=== PATIENT | male | born 1955 | race Hispanic/Latino ===

== ENCOUNTER 2022-09-14 16:11 | Emergency (ER) | payer SELFPAY ==
--- OUTSIDE RECORDS SUMMARY | 2022-09-14 16:14 | XMS REPORT | Continuity of Care Document ---
:1955 Author Organization [facility] t Address [address] [place] [address] [address]. [address] [place] [address] Care Team Providers Name Role Phone Lab, Adc Fam Pob I Attending Clinician Unavailable Elaine Waddell Attending Clinician ELAINE MARTINEZ Attending Clinician Unavailable Rina Peralta Attending Clinician David Rico MD Attending Clinician Clau Naidu MD Attending Clinician CLAU NAIDU Attending Clinician Unavailable NIECY BOYD Attending Clinician Unavailable Payers Payer Name Policy Type Policy Number Effective Date Expiration Date S ource Problems This patient has no known problems. Allergies, Adverse Reactions, Alerts Allergy Allergy Status Severity Reaction(s) Onset Inactive Treating Comm ents Source Name Type Date Date Clinician NO KNOWN Drug Active Univers [facility]ERGIE Class [facility] Social History Social Habit Start Date Stop Date Quantity Comments Source Exposure to Not sure [facility] SARS-CoV-2 (event) Medica l Branch Sex Assigned At [birth year] [facility] 00:00:00 00:00:00 [facility] Smoking Status Start Date Stop Date Source Unknown if ever smoked [facility] Medications This patient has no known medications. Procedures This patient has no known procedures. Encounters Start End Encounter Admission Attending Care Care Encounter Source Date/Time Date/Time Type Type Clinicians Facility Department ID 2021-04-16 2021-04-16 Laboratory Lab, [facility] Fam Pob I [facility] [id number] Univers 11:25:51 11:45:51 Only Elaine Martinez [facility] [id number] [facility] [id number] Roc as Professio [phone] Ne [address] One 2021-04-16 2021-04-16 Outpatient R JUAN [facility] [id number] Univers 11:00:00 11:00:00 ELAINE campos [facility] 2021-04-13 2021-04-13 [facility] [id number] Univers 00:00:00 00:00:00 [facility] [id number] [facility] [id number] Roc as Professio [phone] Ne dic[address] One 2021-04-13 2021-04-13 NIECY Diaz [id number] Univers 00:00:00 00:00:00 (Out) David NAPOLES [id number] i [facility] [id number] Roc as [phone] [address] 2021-04-12 2021-04-12 Laboratory Lab, Adc Fam Pob I [facility] [id number] Univers 17:29:54 17:49:54 Only Clau Naidu [facility] [id number] [facility] [place] [id number] Roc as Professio [phone] Ne dic[address] One 2021-04-12 2021-04-12 Outpatient R KERI [facility] [id number] Univers 17:20:00 17:20:00 CLAU campos [facility] 2020-12-20 2020-12-20 Outpatient R OLIVER [facility] [id number] Univers 09:20:00 09:50:25 NIECY [facility] Results This patient has no known results.
[2022-09-14 17:44] LABS: Absolute Lymphocytes (CBC) 1.7 K/uL (0.7-4.9); Hematocrit 21.5 % (39.6-49.0); Lymphocytes % 23.4 % (15.3-44.8); MCV 67.3 fL (80-100); MPV 8.5 fL (7.6-11.3)
[2022-09-14 17:45] LABS: Protime INR 1.21
[2022-09-14 17:59] LABS: Albumin 3.4 g/dL (3.4-5.0); Bilirubin Total 0.3 mg/dL (0.2-1.0); Potassium 3.7 mmol/L (3.5-5.1); Protein, Total 7.8 g/dL (6.4-8.2)
[2022-09-14 18:51] LABS: Platelet Estimate ADEQ; White Blood Cell Scan OK (OK)
[2022-09-14 18:52] LABS: Anisocytosis 1+; Blood Morphology Comment NOTED (NOT SEEN); Hypochromasia 1+; Polychromasia SLIGHT
[2022-09-14] MEDS ORDERED: ALBUTEROL 2.5 MG/3 ML NEB SOL ONE (19:07)
[2022-09-14] MEDS ORDERED: IPRATROPIUM BROM 0.5MG/2.5ML ONE (19:08)
[2022-09-14] MEDS ORDERED: NA CHLORIDE 0.9% 100 ML IV ONE ×2 (20:33→23:57)
[2022-09-14] MEDS ORDERED: LEVALBUTEROL 1.25 MG/3 ML NEB ONE (23:30)
[2022-09-14] MEDS ORDERED: METHYLPREDNISOLONE 125 MG INJ ONE (23:30)
[2022-09-15 02:11] LABS: Hematocrit 27.9 % (39.6-49.0); MCV 71.7 fL (80-100); MPV 8.6 fL (7.6-11.3); RBC Red Blood Cell Count 3.89 M/uL (4.33-5.43)
--- NOTE | 2022-09-15 02:21 | EDPHYS ---
Physician Documentation [facility] Name: Rosalio Kaiser Age: 67 yrs Sex: Male : 1955 Arrival Date: 09/14/2022 Time: 16:13 Bed 20 Private MD: ED Physician Damon Cazares HPI: 09/14 17:07 This 67 yrs old Male presents to ER via Ambulatory with complaints of Abnormal sp3 Lab Results. 17:07 87-year-old male with history of hypertension and asthma presents to the ED with chief sp3 complaint generalized weakness, dyspnea on exertion, and hemoglobin of 6.0 which was obtained at an outpatient urgent care yesterday. Patient is from [place] and here visiting his daughter who is a local business head of cytogenetics. In January 2022, he had a ground-level mechanical fall where he sustained a minor pelvis fracture and on that evaluation he was found to be anemic at that time as well where he received IV iron. Mild dark stools off and on during that time. Upon landing here in [facility], he denies having any dark stools or bloody emesis but has had dyspnea on exertion and generalized weakness. Therefore the went to the urgent care yesterday where they obtained the low hemoglobin. With a come to the ED so they are here today seeking possible blood transfusion and further direction. Patient returns to [place] in 4 days on review of systems, he denies headache, neck pain, chest pain, back pain, nausea, vomiting, diarrhea flank pain, current dark stools, hematuria, rash, extremity pain, syncope (full). He did say he had occasional abdominal pain but none at rest during history portion.. Historical: - Allergies: 16:35 No Known Allergies; kb3 - PMHx: 16:35 Hypertensive disorder; Asthma; kb3 - Immunization history:: Adult Immunizations up to date, Client reports receiving the 2nd dose of the Covid vaccine, Last tetanus immunization: up to date. - Social history:: Smoking status: Patient denies any tobacco usage or history of. ROS: 17:09 Eyes: Negative for injury, pain, redness, and discharge, ENT: Negative for injury, sp3 pain, and discharge, Neck: Negative for injury, pain, and swelling, Cardiovascular: Negative for chest pain, palpitations, and edema, Back: Negative for injury and pain, MS/Extremity: Negative for injury and deformity, Skin: Negative for injury, rash, and discoloration, Neuro: Negative for headache, weakness, numbness, tingling, and seizure, Psych: Negative for depression, anxiety, suicide ideation, homicidal ideation, and hallucinations, Allergy/Immunology: Negative for hives, rash, and allergies, Endocrine: Negative for neck swelling, polydipsia, polyuria, polyphagia, and marked weight changes. 17:09 All other systems are negative. Exam: 17:09 Constitutional: This is a well developed, well nourished patient who is awake, alert, sp3 and in no acute distress. Head/Face: Normocephalic, atraumatic. Eyes: Pupils equal round and reactive to light, extra-ocular motions intact. Lids and lashes normal. Conjunctiva and sclera are non-icteric and not injected. Cornea within normal limits. Periorbital areas with no swelling, redness, or edema. ENT: Nares patent. No nasal discharge, no septal abnormalities noted. External auditory canals are clear. Oropharynx with no redness, swelling, or masses, exudates, or evidence of obstruction, uvula midline. Mucous membranes moist. Neck: Trachea midline, no thyromegaly or masses palpated, and no cervical lymphadenopathy. Supple, full range of motion without nuchal rigidity, or vertebral point tenderness. No Meningismus. Chest/axilla: Normal chest wall appearance and motion. Nontender with no deformity. No lesions are appreciated. Cardiovascular: Regular rate and rhythm with a normal S1 and S2. No gallops, murmurs, or rubs. Normal PMI, no JVD. No pulse deficits. Respiratory: Lungs have equal breath sounds bilaterally, clear to auscultation and percussion. No rales, rhonchi or wheezes noted. No increased work of breathing, no retractions or nasal flaring. Back: No spinal tenderness. No costovertebral tenderness. Full range of motion. Skin: Warm, dry with normal turgor. Normal color with no rashes, no lesions, and no evidence of cellulitis. 17:09 Abdomen/GI: She has mild right upper quadrant pain to palpation without peritoneal signs including rebound or guarding.. Vital Signs: 16:27 BP 137 / 73; Pulse 60; Resp 20; Temp 98.8; Pulse Ox 96% ; Weight 95.25 kg; Height 5 ft. kb3 8 in. (172.72 cm); Pain 4/10; 18:26 BP 126 / 66; Pulse 55; Resp 18; Pulse Ox 95% on R/A; db 22:40 BP 126 / 76; Pulse 58; Resp 20 S; Pulse Ox 95% on R/A; bb 09/15 01:22 BP 136 / 65; Pulse 69; Resp 29 S; Pulse Ox 93% on 2 lpm NC; bb 01:30 BP 143 / 75; Pulse 77; Resp 22 S; Pulse Ox 93% on 2 lpm NC; bb 02:21 BP 136 / 68; Pulse 74; Resp 28 S; Temp 98.4(O); Pulse Ox 92% on R/A; bb 09/14 16:27 Body Mass Index 31.93 (95.25 kg, 172.72 cm) kb3 MDM: 09/14 16:48 Patient medically screened. sp3 17:10 Data reviewed: vital signs, nurses notes. ED course: 67-year-old male with generalized sp3 weakness and anemia at . outpatient facility yesterday. Patient also has mild right upper quadrant pain. Differential diagnosis includes peptic ulcer disease, gastritis, other GI bleeding, bone marrow suppression, iron deficiency anemia, other blood loss. And then highly suspicious for sepsis, shock, ACS, vascular compromise including aortic disease, or any other critical findings at this time. Reviewed lab work and obtain CT scan of the abdomen and pelvis. Likely transfuse 2 units PRBCs if indicated with follow-up to GI back in [place] after patient returns. I do not believe there is acute or brisk blood loss at this time. He will be signed out to night physician Dr. Cazares for ultimate disposition, and family is aware of this. . 23:22 ED course: . kdr 23:26 ED course: Patient has now completed 1 unit of blood. He appears to be stable. He has kdr developed some mild wheezing and congestion on the right side of his chest. He does not appear to be particularly dyspneic at this time. Will prophylactically treat with Xopenex and Solu-Medrol. ED course: Patient has 1 unit of blood remaining to be infused at this time. 09/14 16:41 Order name: CBC with Diff; Complete Time: 00:06 sp3 09/14 16:41 Order name: CMP; Complete Time: 18:03 sp3 09/14 16:41 Order name: Lipase; Complete Time: 18:03 sp3 09/14 16:41 Order name: Type And Screen sp3 09/14 16:41 Order name: PT-INR; Complete Time: 18:03 sp3 09/14 17:49 Order name: CBC Smear Scan; Complete Time: 00:06 EDDC 09/14 16:41 Order name: IV Saline Lock; Complete Time: 17:37 sp3 09/14 18:08 Order name: Bb Add On eb 09/14 18:23 Order name: Packed RBC Leukored [facility] 09/14 18:42 Order name: ABO/RH no charge; Complete Time: 00:06 EDDC 09/15 01:52 Order name: CBC w/o diff kdr 09/14 16:41 Order name: Labs collected and sent; Complete Time: 17:37 sp3 09/14 16:41 Order name: NPO; Complete Time: 17:37 sp3 Administered Medications: 23:46 Drug: SOLU-Medrol (methylPrednisoLONE) 125 mg Route: IVP; Site: right antecubital; 09/15 00:45 Follow up: Response: No adverse reaction 09/14 23:46 Drug: Xopenex (levalbuterol) (3) 1.25 mg Route: Inhalation; 09/15 00:45 Follow up: Response: No adverse reaction Disposition Summary: 09/15/22 02:20 Discharge Ordered Location: Home kdr Problem: an ongoing problem kdr Symptoms: have improved kdr Condition: Stable kdr Diagnosis - Anemia, unspecified - Chronic kdr Followup: kdr - With: Private Physician - When: 2 - 3 days - Reason: If symptoms return, Further diagnostic work-up, Recheck today's complaints, Continuance of care, Re-evaluation by your physician Discharge Instructions: - Discharge Summary Sheet kdr - Anemia kdr - Blood Transfusion, Adult, Care After, [id number] kdr Forms: - Medication Reconciliation Form kdr - Thank You Letter kdr Signatures: Dispatcher [employer] [facility] Damon Cazares MD MD kdr Ivana Monte RN RN Cyndee Storey MD MD sp3 Radha Hancock RN RN paolo3 Brown, Alanna, PA-C PA-C sb4
--- NOTE | 2022-09-15 02:21 | ER ---
Nurse's Notes [facility] Name: Rosalio Kaiser Age: 67 yrs Sex: Male : 1955 Arrival Date: 09/14/2022 Time: 16:13 Bed 20 Private MD: Diagnosis: Anemia, unspecified-Chronic Presentation: 09/14 16:27 Chief complaint: Patient's son or daughter states: Pt's daughter reports pt is visiting [facility] from [place] and began feeling unwell with wheezing and SOB on Friday. Pt has a history of asthma and stopped taking his Trelegy. Pt's daughter reports she took the pt to a clinic yesterday and was notified that his Hg was 6.0. Pt reports dark black stool on but bowel movements have been normal yesterday and today. Denies vomiting. Pt reports intermittent diffuse abdominal pain and bloating x6 months. Coronavirus screen: Vaccine status: Patient reports receiving the 2nd dose of the covid vaccine. Client denies travel out of the [place] in the last 14 days. Ebola Screen: Patient negative for fever greater than or equal to 101.5 degrees Fahrenheit, and additional compatible Ebola Virus Disease symptoms Patient denies exposure to infectious person. Patient denies travel to an Ebola-affected area in the 21 days before illness onset. Initial Sepsis Screen: Does the patient meet any 2 criteria? No. Patient's initial sepsis screen is negative. Does the patient have a suspected source of infection? No. Patient's initial sepsis screen is negative. Risk Assessment: Do you want to hurt yourself or someone else? Patient reports no desire to harm self or others. Onset of symptoms was September 09, 2022. 16:27 Method Of Arrival: Ambulatory [facility] 16:27 Acuity: CHARANJIT 3 3 Triage Assessment: 16:35 General: Appears in no apparent distress. Behavior is calm, cooperative. Pain: 3 Complains of pain in epigastric area, right upper quadrant and right lower quadrant Pain does not radiate. Pain currently is 4 out of 10 on a pain scale. Quality of pain is described as pressure. GI: Abdomen is round Reports lower abdominal pain, upper abdominal pain, nausea. Historical: - Allergies: 16:35 No Known Allergies; kb3 - PMHx: 16:35 Hypertensive disorder; Asthma; kb3 - Immunization history:: Adult Immunizations up to date, Client reports receiving the 2nd dose of the Covid vaccine, Last tetanus immunization: up to date. - Social history:: Smoking status: Patient denies any tobacco usage or history of. Screenin:26 Abuse screen: Denies threats or abuse. Denies injuries from another. Nutritional db screening: No deficits noted. 18:26 Tuberculosis screening: No symptoms or risk factors identified. Fall Risk None db identified. No fall in past 12 months (0 pts). No secondary diagnosis (0 pts). IV access (20 points). Ambulatory Aid- None/Bed Rest/Nurse Assist (0 pts). Gait- Normal/Bed Rest/Wheelchair (0 pts) Mental Status- Oriented to own ability (0 pts). Total Jaramillo Fall Scale indicates No Risk (0-24 pts). Assessment: 18:25 Reassessment: Patient appears in no apparent distress at this time. Patient and/or db family updated on plan of care and expected duration. Pain level reassessed. Patient is alert, oriented x 3, equal unlabored respirations, skin warm/dry/pink. sent to ED for low hemoglobin 6.6. General: Appears in no apparent distress. comfortable, Behavior is calm, cooperative, appropriate for age, quiet. Pain: Denies pain. Neuro: No deficits noted. Level of Consciousness is awake, alert, obeys commands, Oriented to person, place, time, situation, Appropriate for age Gait is steady, Speech is normal, Facial symmetry appears normal, Pupils are PERRLA. Cardiovascular: No deficits noted. Respiratory: No deficits noted. GI: No deficits noted. : No deficits noted. 19:30 Reassessment: Patient is alert, oriented x 3, equal unlabored respirations, skin bb warm/dry/pink. awaiting blood transfusion IV site intact family at bedside. 20:52 Reassessment: Patient is alert, oriented x 3, equal unlabored respirations, skin bb warm/dry/pink. blood transfusion initiated. 22:39 Reassessment: Patient is alert, oriented x 3, equal unlabored respirations, skin bb warm/dry/pink. blood transfusion in process, IV site intact no erythema or edema noted family at bedside. 23:16 Reassessment: pt resp labored, bilateral lungs with wheezes Dr Cazares notified new bb orders received pt medicated see JAN. 09/15 01:20 Reassessment: pt receiving 2nd unit of blood O2 sats 90% RA O2 applied via NC at [address] Cazares notified. Bilateral breath sounds with wheezes. 01:30 Reassessment: Patient is alert, oriented x 3, equal unlabored respirations, skin bb warm/dry/pink. pt continuing to receive blood IV site intact, patent no erythema or edema noted, family at bedside. 01:39 Reassessment: Patient is alert, oriented x 3, equal unlabored respirations, skin bb warm/dry/pink. pt states he is feeling better blood transfusion of [address] Cazares notified. 02:17 Reassessment: Patient is alert, oriented x 3, equal unlabored respirations, skin bb warm/dry/pink. pt awaiting results of repeat CBC prior to discharge, family at bedside. 02:29 Reassessment: pt's daughter asking about CT scan Dr Cazares at bedside for discussion bb with family. 02:44 Reassessment: Patient is alert, oriented x 3, equal unlabored respirations, skin bb warm/dry/pink. pt and family verbalized understanding of and agree to plan of care discharge instructions given pt ambuated with cane to exit accompanied by family. Vital Signs: 09/14 16:27 BP 137 / 73; Pulse 60; Resp 20; Temp 98.8; Pulse Ox 96% ; Weight 95.25 kg; Height 5 ft. kb3 8 in. (172.72 cm); Pain 4/10; 18:26 BP 126 / 66; Pulse 55; Resp 18; Pulse Ox 95% on R/A; db 22:40 BP 126 / 76; Pulse 58; Resp 20 S; Pulse Ox 95% on R/A; bb 09/15 01:22 BP 136 / 65; Pulse 69; Resp 29 S; Pulse Ox 93% on 2 lpm NC; bb 01:30 BP 143 / 75; Pulse 77; Resp 22 S; Pulse Ox 93% on 2 lpm NC; bb 02:21 BP 136 / 68; Pulse 74; Resp 28 S; Temp 98.4(O); Pulse Ox 92% on R/A; bb 09/14 16:27 Body Mass Index 31.93 (95.25 kg, 172.72 cm) kb3 ED Course: 09/14 16:13 Patient arrived in ED. rg4 16:35 Triage completed. kb3 16:35 Arm band placed on right wrist. kb3 16:38 Cyndee Orozco MD is Attending Physician. sp3 16:48 Belinda Reddy, RN is Primary Nurse. db 17:37 Attending Physician role handed off by Cyndee Orozco MD kdr 17:37 Damon Cazares MD is Attending Physician. kdr 17:37 Inserted saline lock: 20 gauge in left antecubital area, using aseptic technique. Blood ss collected. 18:26 Patient has correct armband on for positive identification. Placed in gown. Bed in low db position. Call light in reach. Side rails up X 1. 19:16 Report given to LISA Heath. db 22:22 Primary Nurse role handed off by Belinda Reddy RN bb 22:22 Ivana Monte RN is Primary Nurse. bb 09/15 01:22 Oxygen administration via nasal cannula \T\ 2L/min Response to oxygen therapy: symptoms bb improved. 02:04 CBC w/o diff Sent. bb 02:04 Repeat lab(s) drawn. by me, sent to lab. bb 02:45 No provider procedures requiring assistance completed. IV discontinued, intact, bb bleeding controlled, No redness/swelling at site. Pressure dressing applied. Administered Medications: 09/14 23:46 Drug: SOLU-Medrol (methylPrednisoLONE) 125 mg Route: IVP; Site: right antecubital; bb 09/15 00:45 Follow up: Response: No adverse reaction bb 09/14 23:46 Drug: Xopenex (levalbuterol) (3) 1.25 mg Route: Inhalation; bb 09/15 00:45 Follow up: Response: No adverse reaction bb Medication: 09/14 18:26 VIS not applicable for this client. db Outcome: 09/15 02:20 Discharge ordered by . kdr 02:45 Discharged to home ambulatory, with family. bb 02:45 Condition: stable 02:45 Discharge instructions given to patient, family, Instructed on discharge instructions, follow up and referral plans. Demonstrated understanding of instructions, follow-up care. 02:45 Patient left the ED. bb Signatures: Damon Cazares MD MD kdr Ivana Monte RN RN bb Starr Lujan RN RN ss Shruthi Merritt rg4 Cyndee Orozco MD MD sp3 Radha Hancock, RN RN kb3 Belinda Reddy, RN RN db
[2022-09-15 03:54] VITALS: BP 136/68; TEMP 98.4; O2SAT 92
== END 2022-09-15 02:45 | disposition home or self-care (01) ==
LOC: ER 16:11
PROC: 30233N1 Transfusion of Nonautologous Red Blood Cells into Peripheral Vein, Percutaneous Approach (ICD-10-PCS; principal; 2022-09-15)
DX: D64.9 Anemia, unspecified (principal); I10 Essential (primary) hypertension
CPT/HCPCS: 36415; 80053; 83690; 85025; 85027; 85610; 86850; 86900; 86901; 96374; 99285; J2930; J7614; P9016